=== PATIENT | male | born 1970 | race Caucasian/White ===

== ENCOUNTER 2017-02-15 20:52 | Emergency (ER) | payer MEDICAID ==
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
== END 2017-02-16 08:10 ==
LOC: JP.ED 20:52
DX: S01.81XA Laceration without foreign body of other part of head, initial encounter (principal); S70.11XA Contusion of right thigh, initial encounter; F33.1 Major depressive disorder, recurrent, moderate; F17.210 Nicotine dependence, cigarettes, uncomplicated; Z79.899 Other long term (current) drug therapy; X83.8XXA Intentional self-harm by other specified means, initial encounter
CPT/HCPCS: 36415; 80053; 80305; 81001; 84443; 85027; 99285; G0480

== ENCOUNTER 2020-03-30 02:01 | Emergency (ER) | payer MEDICAID ==
--- NOTE | 2020-03-30 04:33 | EDM.PDOC ---
ED HPI GENERAL MEDICAL PROBLEM - General Chief Complaint: Lower Extremity Injury/Pain Stated Complaint: RT HIP PAIN VIA [facility] Time Seen by Provider: 03/30/20 04:27 Source of Information: Reports: Patient, EMS History Limitations: Reports: No Limitations - History of Present Illness INITIAL COMMENTS - FREE TEXT/NARRATIVE: Patient presents by ambulance complaining of intense right hip and leg pain after falling from the landing on steps to his deck down to the grassy ground. This happened on , 28 March. Since that time he has been using ibuprofen 800 mg for pain and has not really had much in the way of relief. The most pronounced portion of pain is on the lateral side of the right hip with some additional pain and the right buttock and sacral region. He states that he gets shooting pains all the way down his leg to the toes depending on the position that he is in. He has a cane with him today and states that he cannot comfortably move around without using the cane but he still has had discomfort. He was transported by EMS to this facility tonight but was not given any pain medication during the transport. Due to operational tempo in the department, it was quite some time until I was able to examine him. When I entered the room to see him, he was turned onto his right side with the left hip and knee bent over the right leg. Other than the hip and low back, he complains of some pain in the right knee. He stated that he landed on his hip and knee during the fall. Onset: Gradual Duration: Day(s): (2) Location: Reports: Lower Extremity, Right Quality: Reports: Ache, Burning Severity: Moderate Improves with: Reports: None Worsens with: Reports: Movement Context: Reports: Trauma (Fall onto ground as described.) Associated Symptoms: Reports: No Other Symptoms Treatments SURFACE HYDROLOGIST: Reports: NSAIDS Right Lower Posterior Hip Pain Score (Numeric/FACES): 9 - Related Data Allergies Allergy/AdvReac Type Severity Reaction Status Date / Time No Known Allergies Allergy Verified 03/30/20 02:05 Home Meds: Home Meds Brexpiprazole [Rexulti] 0.5 mg PO DAILY 02/15/17 [History] Naproxen [Naprosyn] 500 mg PO BID 02/15/17 [History] Omeprazole Magnesium [Prilosec Otc] 20 mg PO DAILY 02/15/17 [History] Vilazodone [Viibryd] 40 mg PO DAILY 02/15/17 [History] hydrOXYzine HCL [hydrOXYzine] 25 mg PO TID 02/15/17 [History] Ibuprofen 800 mg PO ASDIRECTED 03/30/20 [History] Pregabalin [Lyrica] 50 mg PO BID 03/30/20 [History] Past Medical History Gastrointestinal History: Reports: GERD Musculoskeletal History: Reports: Arthritis, Back Pain, Chronic Neurological History: Reports: Migraines Psychiatric History: Reports: Addiction, Anxiety, Depression, Emotional Problems, Suicide Attempt, Suicidal Ideation - Infectious Disease History Infectious Disease History: Reports: Chicken Pox Social & Family History - Tobacco Use Tobacco Use Status *Q: Current Every Day Tobacco User Years of Tobacco use: 26 Packs/Tins Daily: 1 - Caffeine Use Caffeine Use: Reports: Soda - Recreational Drug Use Recreational Drug Use: Yes Drug Use in Last 12 Months: Yes Recreational Drug Type: Reports: Marijuana/Hashish Recreational Drug Use Frequency: Monthly Review of Systems - Review of Systems Review Of Systems: Comprehensive ROS is negative, except as noted in HPI. ED EXAM, GENERAL - Physical Exam Exam: See Below Free Text/Narrative:: This is a comfortable appearing adult male examined in room 7. As I enter the room, he is turned onto his right hip and buttock region and has the left hip and knee flexed and placed alongside his straight right leg. Exam Limited By: No Limitations General Appearance: Alert, No Apparent Distress Respiratory/Chest: No Respiratory Distress, Lungs Clear Cardiovascular: Regular Rate, Rhythm GI/Abdominal: Soft Extremities: Leg Pain (There is pain on palpation in the region of the greater trochanter of the femur and lateral to the right sacral region through the buttock. Passive circumduction of the hip does not really elicit much pain response. Visualization of the knee shows no evidence of bruising or abrasion. There is no effusion. The right hip does not show evidence of bruising or abrasion or other injury.). No: Joint Swelling, Mottled, Pallor, Redness Course - Vital Signs Last Recorded V/S: Last Vital Signs Temp 36.7 C 03/30/20 02:07 Pulse 74 03/30/20 06:20 Resp 16 03/30/20 06:20 BP 125/88 03/30/20 06:20 Pulse Ox 92 L 03/30/20 06:20 - Orders/Labs/Meds Orders: Active Orders 24 hr Category Date Time Status Hip Min 2V or 3V w Pelvis Rt [CR] Stat Exams 03/30/20 04:33 Ordered Labs: Laboratory Tests 03/30/20 03/30/20 03/30/20 Range/Units 05:31 05:31 06:39 WBC 8.6 (4.5-11.0) K/uL RBC 4.15 L (4.30-5.90) M/uL Hgb 11.8 L D (12.0-15.0) g/dL Hct 36.7 L (40.0-54.0) % MCV 88 (80-98) fL MCH 28 (27-31) pg MCHC 32 (32-36) % Plt Count 200 (150-400) K/uL Neut % (Auto) 60 (36-66) % Lymph % (Auto) 26 (24-44) % [place] % (Auto) 9 H (2-6) % Eos % (Auto) 4 (2-4) % Baso % (Auto) 0 (0-1) % Sodium 142 (140-148) mmol/L Potassium 3.7 (3.6-5.2) mmol/L Chloride 104 (100-108) mmol/L Carbon Dioxide 28 (21-32) mmol/L Anion Gap 9.7 (5.0-14.0) mmol/L BUN 17 (7-18) mg/dL Creatinine 1.2 (0.8-1.3) mg/dL Est Cr Clr Drug Dosing 79.31 mL/min Estimated GFR (MDRD) > 60 (>60) Glucose 105 (74-106) mg/dL Calcium 8.6 (8.5-10.1) mg/dL Total Bilirubin 0.3 (0.2-1.0) mg/dL AST 29 (15-37) U/L ALT 56 (12-78) U/L Alkaline Phosphatase 77 (46-116) U/L Total Protein 6.0 L (6.4-8.2) g/dL Albumin 2.9 L (3.4-5.0) g/dL Globulin 3.1 (2.3-3.5) g/dL Albumin/Globulin Ratio 0.9 L (1.2-2.2) SARS CoV-2 RNA Rapid TEMI Negative Meds: Medications Discontinued Medications Generic Name Dose Route Start Last Admin Trade Name Cinthya PRN Reason Stop Dose Admin Hydromorphone HCl 1 mg 03/30/20 05:21 03/30/20 05:27 Dilaudid IVPUSH 03/30/20 05:22 1 mg ONETIME ONE Administration - Re-Assessments/Exams Free Text/Narrative Re-Assessment/Exam: 03/30/20 05:02 X-ray of right hip with AP pelvis view will be ordered. 03/30/20 05:23 03/30/20 05:25 X-rays show a comminuted fracture of the base of the right femoral neck. The remainder of the pelvis and the left hip are unremarkable. He is requesting pain medication. Dilaudid 1 mg IV will be given. I spoke with Edagr Yadav, orthopedics operations and maintenance technician for [facility] in [place]. He will review the images and discussed them with the surgeon operations and maintenance technician. 03/30/20 07:[address] [facility] was unable to accept the patient in transfer as the on-call staff this weekend do not have experience using artificial hips in somebody this young. I contacted [facility] in [place] and after reviewing the images, spoke with one of the hospitalists who stated that orthopedics just told them to accept the patient and they would sort things out from their. He has been resting comfortably. He is COVID-19 negative by our initial test. He will be transported when paramedics are available. Departure - Departure Time of Disposition: 06:57 Disposition: DC/Tfer to Acute Hospital 02 Condition: Good Clinical Impression: Fracture of neck of femur, hip - Discharge Information Referrals: PCP,None [Primary Care Provider] - Forms: ED Department Discharge Sepsis Event Note (ED) - Evaluation Sepsis Screening Result: No Definite Risk - Focused Exam Vital Signs: Vital Signs Temp Pulse Resp BP Pulse Ox 03/30/20 06:20 74 16 125/88 92 L 03/30/20 05:55 69 15 123/79 94 L 03/30/20 02:07 36.7 C 82 16 139/87 98 - My Orders Last 24 Hours: My Active Orders 03/30/20 04:33 Hip Min 2V or 3V w Pelvis Rt [CR] Stat - Assessment/Plan Last 24 Hours: My Active Orders 03/30/20 04:33 Hip Min 2V or 3V w Pelvis Rt [CR] Stat
[2020-03-30] MEDS ORDERED: HYDROmorphone 1 MG/ML Syringe IVPUSH ONE ×2 (05:21→07:16)
== END 2020-03-30 08:16 ==
LOC: JP.ED 02:01
DX: S72.001A Fracture of unspecified part of neck of right femur, initial encounter for closed fracture (principal); Z20.828 Contact with and (suspected) exposure to other viral communicable diseases; K21.9 Gastro-esophageal reflux disease without esophagitis; F17.210 Nicotine dependence, cigarettes, uncomplicated; G43.909 Migraine, unspecified, not intractable, without status migrainosus; Z79.899 Other long term (current) drug therapy; W10.9XXA Fall (on) (from) unspecified stairs and steps, initial encounter
CPT/HCPCS: 36415; 73502-RT; 80053; 85025; 96374; 96376; 99285; 99285-25; J1170; U0002